=== PATIENT | female | born 1970 | race Asian ===

== ENCOUNTER 2017-05-13 02:00 | Emergency (ER) | payer MEDICAID ==
[~2017-05-13] VITALS: Ht 165.1 cm; Wt 57.7 kg
[2017-05-13 02:07] VITALS: Ht 165.1 cm; Wt 57.7 kg
[2017-05-13 05:19] VITALS: BP 125/86
== END 2017-05-13 05:19 | disposition home or self-care (01) ==
LOC: ED 02:00
DX: S01.111A Laceration without foreign body of right eyelid and periocular area, initial encounter (principal); E11.9 Type 2 diabetes mellitus without complications; W55.03XA Scratched by cat, initial encounter; Y93.89 Activity, other specified; Y99.8 Other external cause status; Y92.89 Other specified places as the place of occurrence of the external cause
CPT/HCPCS: 90715; J2001